=== PATIENT | female | born 1960 | race Hispanic/Latino ===

== ENCOUNTER 2025-03-17 20:45 | Emergency (ER) | payer MEDICARE ==
[~2025-03-17] VITALS: Ht 152.4 cm; Wt 54.4 kg
[2025-03-17] MEDS: ondanSETRON 4MG INJ IVP ONE (22:07)
[2025-03-17] MEDS: CLINDAMYCIN IVPB 300MG/50ML 50 ML IV SCH (22:08)
[2025-03-17] MEDS: ketOROlac 15MG/ML VIAL (15MG/ML) IV ONE (22:08)
[2025-03-17] MEDS: dexaMETHasone SOD PHOSPHATE 4 MG/ML 1ML VIAL IV ONE (22:08)
[2025-03-17] MEDS: morPHINE 2 MG SYG IVP ONE (22:08)
--- NOTE | 2025-03-17 23:11 | EKG ---
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
[2025-03-17] MEDS ORDERED: KETO10TA2 PO (23:16)
[2025-03-17] MEDS ORDERED: CLIN-141 PO (23:16)
--- NOTE | 2025-03-17 23:16 | ERN ---
General Chief Complaint: Tooth Ache/Pain Stated Complaint: TOOTHACHE, SWELLING Time Seen by MD: 20:50 History of Present Illness Allergies: Coded Allergies: No Known Allergies (Unverified Allergy, Unknown, 03/17/25) Past Medical History Past Medical History: No Pertinent History Past Surgical History: None ED Course Orders Procedure Category Date Status Time Morphine 2mg Syg PHA 03/17/25 Complete (Morphine 2mg Syg) 22:00 Ketorolac PHA 03/17/25 Complete Tromethamine 15mg/Ml 22:00 Dexamethasone 4mg/Ml PHA 03/17/25 Complete 1ml Vial (Dexametha 22:00 Ondansetron 4mg Inj PHA 03/17/25 Complete (Zofran 4mg Inj) 22:00 Clindamycin Ivpb PHA 03/17/25 In Process 300mg/50ml (Cleocin 22:00 12 Lead Ekg Tracing- EKG 03/17/25 Complete Technical 22:59 Current Medications Medications (Trade) Dose Ordered Sig/Luciano Route PRN Reason Start Time Stop Time Status Last Admin Dose Admin Clindamycin HCl/ Dextrose 50 ml @ 100 mls/hr Q8H IV 03/17/25 22:00 03/27/25 21:59 03/17/25 22:08 Dexamethasone Sodium Phosphate (dexaMETHasone 4MG/ML 1ML VIAL) 10 mg ONCE ONCE IV 03/17/25 22:00 03/17/25 22:01 DC 03/17/25 22:08 Ketorolac Tromethamine (toRADol) 15 mg ONCE ONCE IV 03/17/25 22:00 03/17/25 22:01 DC 03/17/25 22:08 Morphine Sulfate (morPHINE 2MG SYG) 2 mg ONCE ONCE IVP 03/17/25 22:00 03/17/25 22:01 DC 03/17/25 22:08 Ondansetron HCl (zoFRAN 4MG INJ) 4 mg ONCE ONCE IVP 03/17/25 22:00 03/17/25 22:01 DC 03/17/25 22:07 Vital Signs Date Time Temp Pulse Resp B/P (MAP) Pulse Ox O2 Delivery O2 Flow Rate FiO2 03/17/25 21:47 98.2 95 16 132/85 98 Room Air* 0 21 03/17/25 20:47 98.4 97 20 132/85 100 Room Air DX & DISP Disposition: Discharge Departure Impression: Primary Impression: Dental abscess Condition: Stable Scripts Clindamycin HCl (Clindamycin HCl) 300 Mg Capsule 1 CAP PO QID for 10 Days, #40 CAP 0 Refills Prov: NATHAN SALDAÑA 03/17/25 Ketorolac Tromethamine (Ketorolac Tromethamine) 10 Mg Tablet 1 TAB PO BID for pain for 5 Days, #10 TAB 0 Refills Prov: NATHAN SALDAÑA 03/17/25 Referrals: VIVI TALLEY DO (PCP) Time of Disposition: 23:16 I have reviewed the case, and I agree with, Diagnosis and Plan I performed the substantive portion of the visit. I have reviewed and personally made and approve the management plan that is documented in the note by myself or the GENEVA. I acknowledge for responsibility for the patient's management plan. NATHAN SALDAÑA Mar 17, 2025 23:16
[2025-03-17 23:29] VITALS: BP 136/78; PULSE 72; RESP 15; TEMP 99.3; O2SAT 98
== END 2025-03-17 23:30 | disposition home or self-care (01) ==
LOC: EDH 20:45
DX: K04.7 Periapical abscess without sinus (principal)
CPT/HCPCS: 99284; 96365; 96375; 93005; J1100; J1885; J2270; J2405; J3490